=== PATIENT | male | born 1935 | race Caucasian/White ===

== ENCOUNTER → 2016-10-18 | Outpatient (CLI) | payer OTHER ==
[~2016-10-18] MED LIST: ASPIRIN EC81 M1 PO; ATORVASTATIN CA40 MG PO; EXFORGE; FENOFIBRATE134 MG PO; FLONASE 0.05%50 MCG; GLIPIZIDE ER2.5 MG PO; JANUVIA50 MG PO
== END | disposition home or self-care (01) ==
LOC: RAD 07:08
DX: M25.552 Pain in left hip (principal)

== ENCOUNTER → 2017-07-01 | Outpatient (CLI) | payer OTHER | END | disposition home or self-care (01) | LOC: RAD 09:25 | DX: M25.552 Pain in left hip (principal) ==